=== PATIENT | female | born 1950 | race Caucasian/White ===

== ENCOUNTER 2017-08-11 08:38 | Inpatient (IN) | payer OTHER ==
[2017-08-08 11:33] VITALS: BMI 33.6
[2017-08-11] MEDS ORDERED: TRANEXAMIC ACID 1000 MG/10 ML VIAL IVPUSH ONE (09:17)
[2017-08-11] MEDS ORDERED: CEFAZOLIN 2 GM in DEXTROSE 5%-WATER - 50 ML IVPB ONE (09:17)
[2017-08-11] MEDS ORDERED: ROPIVICAINE 0.2%/MORPH PF/KETOROLAC - 51ML DISP.SYRINGE IA ONE ×2 (09:17→11:48)
[2017-08-11] MEDS: CELECOXIB 200 MG CAPSULE PO ONE ×2 (10:00→15:45)
[2017-08-11] MEDS: oxyCODONE HCL 10 MG SUSTAINED ACTING TABLET PO ONE ×2 (10:00→15:46)
[2017-08-11] MEDS: GABAPENTIN 300 MG CAPSULE (FP) PO ONE ×2 (10:00→15:46)
[2017-08-11] MEDS ORDERED: MIDAZOLAM HCL 2 MG/2 ML SINGLE DOSE VIAL ONE ×2 (10:02→12:27)
[2017-08-11] MEDS ORDERED: ROPIVACAINE HCL 0.5% 30ML VIAL ONE (10:03)
[2017-08-11] MEDS ORDERED: DEXAMETHASONE SOD PHOSPHATE/PF 10 MG/ML SDV ONE (10:03)
--- NOTE | 2017-08-11 11:22 | HP ---
Admitting History and Physical - Admission Chief Complaint: right knee OA History of Present Illness: 66yo female with right knee OA, failed conservative management, indicated for TKA History Source: Patient, Medical Record Limitations to Obtaining History: No Limitations - Past Medical History Cardiovascular: Yes: HTN, Hyperlipdemia - Smoking History Smoking history: Former smoker Have you smoked in the past 12 months: No Aproximately how many cigarettes per day: 2 If you are a former smoker, when did you quit?: 1966 - Alcohol/Substance Use Hx Alcohol Use: No Home Medications - Allergies Allergies/Adverse Reactions: Allergies Allergy/AdvReac Type Severity Reaction Status Date / Time No Known Allergies Allergy Verified 08/11/17 09:46 - Home Medications Home Medications: Ambulatory Orders Atorvastatin Ca [Lipitor] 20 mg PO DAILY 05/29/17 Bisoprolol Fumarate/Hctz [Bisoprolol-Hctz 10-6.25 mg Tab] 1 tab PO DAILY Meloxicam [Mobic (Nf) -] 15 mg PO DAILY 05/29/17 Multivitamins [Tab-A-Vit -] 1 tab PO DAILY 05/29/17 Ramipril 5 mg PO DAILY 05/29/17 Hydrocodone/Acetaminophen [Hydrocodon-Acetaminophen 5-300] 1 each PO Q4H PRN Physical Examination Vital Signs: Vital Signs Temperature 98.3 F 08/11/17 09:52 Pulse Rate 65 08/11/17 09:52 Respiratory Rate 16 08/11/17 09:52 Blood Pressure 152/77 08/11/17 09:52 O2 Sat by Pulse Oximetry (%) Constitutional: Yes: Well Nourished, No Distress, Calm Eyes: Yes: WNL, Conjunctiva Clear, EOM Intact HENT: Yes: WNL, Atraumatic, Normocephalic Neck: Yes: WNL, Supple Cardiovascular: Yes: WNL, Regular Rate and Rhythm Respiratory: Yes: WNL, Regular Gastrointestinal: Yes: WNL, Soft, Abdomen, Obese ...Rectal Exam: Yes: Deferred Musculoskeletal: Yes: Joint Stiffness, Joint Swelling Extremities: Yes: WNL Edema: No Peripheral Pulses WNL: Yes Integumentary: Yes: WNL Neurological: Yes: WNL, Alert, Oriented ...Motor Strength: WNL Psychiatric: Yes: WNL, Alert, Oriented Labs: reviewed in chart Imaging - Results X-ray: Image Reviewed Problem List - Problems (1) Osteoarthritis of right knee Code(s): M17.11 - UNILATERAL PRIMARY OSTEOARTHRITIS, RIGHT KNEE Qualifiers: Osteoarthritis type: primary Qualified Code(s): M17.11 - Unilateral primary osteoarthritis, right knee; M17.11 - Unilateral primary osteoarthritis, right knee Assessment/Plan 66yo female with right knee OA, failed conservative management, here for R TKA
[2017-08-11] MEDS ORDERED: TRANEXAMIC ACID 1000 MG/10 ML VIAL ONE ×2 (11:47→13:46)
[2017-08-11] MEDS ORDERED: VANCOMYCIN 1,000 MG VIAL (RESTRICTED TO ID ONLY) ONE (11:47)
[2017-08-11] MEDS ORDERED: ceFAZolin SODIUM 1 GM VIAL ONE ×2 (11:47→12:08)
[2017-08-11] MEDS ORDERED: BUPIVACAINE HCL/PF 0.5% (5MG/ML) 10 ML VIAL ONE (12:01)
[2017-08-11] MEDS ORDERED: DEXAMETHASONE SOD PHOSPHATE 4 MG/1 ML VIAL ONE (12:47)
[2017-08-11] MEDS ORDERED: ONDANSETRON 4 MG/2 ML VIAL ONE (12:47)
[2017-08-11] MEDS ORDERED: oxyCODONE HCL 5 MG TABLET PO PRN (13:31)
--- NOTE | 2017-08-11 15:39 | OP ---
Operative Note - Note: Operative Date: 08/11/17 Pre-Operative Diagnosis: right knee OA Operation: right TKA Post-Operative Diagnosis: Same as Pre-op Surgeon: Demian Palacio Harvest Crew Supervisor: Carolina Jang Anesthesia: Spinal Estimated Blood Loss (mls): 100
[2017-08-11] MEDS ORDERED: MAG HYDROX/AL HYDROX/SIMETH 30 ML UNIT-DOSE CUP PO PRN (15:40)
[2017-08-11] MEDS ORDERED: MAGNESIUM HYDROX 2400MG/30ML ORAL SUSPENSION 30 ML CUP PO PRN (15:40)
[2017-08-11] MEDS ORDERED: ONDANSETRON 4 MG/2 ML VIAL IVPB PRN (15:40)
[2017-08-11] MEDS ORDERED: LACTATED RINGERS SOLUTION 1,000 ML IV SCH (15:45)
--- NOTE | 2017-08-11 15:51 | SURG ---
Surgery Special Services Coordinator Note Special Services Coordinator: Carolina Jang PA-C Date of Service: 08/11/17 Diagnosis: right knee Osteoarthritis Procedure: Right Total knee arthroplasty I was present for the entirety of the operative procedure. For further detail, please refer to operative report. Visit type - Case Type Case Type: Scheduled Admission - Emergency Emergency Visit: No - New patient This patient is new to me today: Yes Date on this admission: 08/11/17
[2017-08-11] MEDS ORDERED: KETOROLAC TROMETHAMINE 30 MG/1 ML VIAL ONE (15:53)
[2017-08-11] MEDS ORDERED: ACETAMINOPHEN INJECTION 100 ML IVPB ONE (15:53)
[2017-08-11] MEDS ORDERED: traMADol HCL 50 MG TABLET ONE (15:53)
[2017-08-11] MEDS: ACETAMINOPHEN 1000 MG/100 ML VIAL (NON FORMULARY) IVPB ONE ×2 (15:55→16:00)
[2017-08-11] MEDS: traMADol HCL 50 MG TABLET PO SCH ×3 (15:56→20:54)
[2017-08-11] MEDS: KETOROLAC TROMETHAMINE 30 MG/1 ML VIAL IVPUSH SCH ×3 (15:56→20:57)
[2017-08-11] MEDS: ACETAMINOPHEN 325 MG TABLET (FP) PO SCH ×2 (17:16→20:54)
[2017-08-11] MEDS: CEFAZOLIN 1 GM/D5W 50 ML IVPB SCH (20:04)
[2017-08-11] MEDS ORDERED: GABAPENTIN 300 MG CAPSULE (FP) PO SCH (22:00)
[2017-08-11] MEDS: oxyCODONE HCL 10 MG SUSTAINED ACTING TABLET PO SCH (22:17)
[2017-08-11] MEDS: SENNOSIDES/DOCUSATE COMBO (SENNA PLUS) TABLET (UD) PO SCH (22:18)
[2017-08-11] MEDS: GABAPENTIN 300 MG CAPSULE (FP) PO SCH (22:19)
[2017-08-11] MEDS: CELECOXIB 200 MG CAPSULE PO SCH (22:19)
[2017-08-11] MEDS: ASCORBIC ACID 500 MG TABLET (FP) PO SCH (22:19)
[2017-08-11] MEDS ORDERED: DEXAMETHASONE SOD PHOSPHATE 10 MG/1 ML VIAL ONE (23:58)
[2017-08-12] MEDS ORDERED: DEXAMETHASONE SOD PHOSPHATE 10 MG/1 ML VIAL IVPB ONE (01:00)
[2017-08-12] MEDS: traMADol HCL 50 MG TABLET PO SCH ×4 (02:55→21:12)
[2017-08-12] MEDS: ACETAMINOPHEN 325 MG TABLET (FP) PO SCH ×4 (02:55→21:11)
[2017-08-12] MEDS: KETOROLAC TROMETHAMINE 30 MG/1 ML VIAL IVPUSH SCH ×2 (02:56→09:17)
[2017-08-12] MEDS: CEFAZOLIN 1 GM/D5W 50 ML IVPB SCH (03:55)
[2017-08-12 07:58] LABS: MCH 30.8 pg (25.7-33.7); MCHC 34.2 g/dl (32.0-36.0); MEAN CELL VOLUME 90.2 fl (80-96); PLATELET COUNT 281 K/MM3 (134-434); RDW 12.1 % (11.6-15.6); WHITE BLOOD COUNT 10.7 K/mm3 (4.0-10.8)
[2017-08-12 08:21] LABS: ANION GAP 11 (8-16); CALCIUM 9.2 mg/dl (8.4-10.2); CO2 22 mmol/L (22-28); CREATININE 0.9 mg/dl (0.6-1.3); GLUCOSE,RANDOM 192 mg/dl (74-106)
--- NOTE | 2017-08-12 09:02 | PN ---
Progress Note (short form) - Note Progress Note: 66F POD1 s/p R TKR under spinal anesthetic with adductor canal and selective tibial blocks doing well. Pt states that she has no pain, reports no anesthetic complications. Sensory and motor function intact in bilateral lower extremities.
[2017-08-12] MEDS: ASPIRIN 325 MG TABLET PO SCH (09:16)
[2017-08-12] MEDS: oxyCODONE HCL 10 MG SUSTAINED ACTING TABLET PO SCH (09:21)
[2017-08-12] MEDS: MULTIVITAMINS (DAILY MVI) TABLET (FP) PO SCH (09:21)
[2017-08-12] MEDS: ASCORBIC ACID 500 MG TABLET (FP) PO SCH ×2 (09:21→21:12)
[2017-08-12] MEDS: CELECOXIB 200 MG CAPSULE PO SCH ×2 (09:21→21:12)
[2017-08-12] MEDS: RAMIPRIL 5 MG CAPSULE (FP) PO SCH (09:21)
[2017-08-12] MEDS: SENNOSIDES/DOCUSATE COMBO (SENNA PLUS) TABLET (UD) PO SCH ×2 (09:21→21:12)
[2017-08-12] MEDS: ATORVASTATIN CA 20 MG TABLET (FP) PO SCH (09:21)
[2017-08-12] MEDS: GABAPENTIN 300 MG CAPSULE (FP) PO SCH ×2 (09:21→21:12)
[2017-08-12] MEDS: PANTOPRAZOLE 40 MG TABLET (FP) PO SCH (09:21)
[2017-08-12] MEDS ORDERED: PATIENT'S OWN MEDICATION (NON-FORMULARY) (Bisoprolol Fumarate/Hctz [Bisoprolol-Hctz 10-6.2 PO SCH (10:00)
--- NOTE | 2017-08-12 13:46 | SPEC ---
DATE OF OPERATION: 08/11/2017 PREOPERATIVE DIAGNOSIS: Right knee osteoarthritis. POSTOPERATIVE DIAGNOSIS: Right knee osteoarthritis. PROCEDURE: Right total knee replacement. SURGEON: Dariusz Trejo MD FISHING GAME WARDEN: MELISSA Florian. ANESTHESIA: Spinal plus sedation. ESTIMATED BLOOD LOSS: 100 mL. COMPLICATIONS: None. DISPOSITION: The patient was transferred to the PACU in stable condition. SPECIMENS SENT: Resected bone was sent for pathological analysis. IMPLANTS USED: Latanya Triathlon size 4 femoral component, size 3 tibial components, 32-mm patellar component, and 11-mm posterior stabilized polyethylene component. INDICATIONS: This is a 66-year-old female who presented to the office complaining of severe right knee pain. She was seen and examined by Dr. Trejo and diagnosed with severe right knee osteoarthritis with valgus alignment. She was initially treated nonoperatively with medications, injections, and physical therapy, but continued to have severe pain. She was therefore indicated for a right total knee replacement. The risks, benefits, and alternatives to the procedure were explained to the patient in great detail, and she elected to proceed with the surgery. DESCRIPTION OF PROCEDURE: On the day of surgery, the patient was taken to the operating room and placed supine on the OR table. Spinal anesthesia was administered by the anesthesiologist. The patient was then positioned supine on the table and all bony prominences were padded. A nonsterile tourniquet was placed on the proximal thigh. The knee was then prepped and draped in the usual sterile fashion and intravenous antibiotics were given for infection prophylaxis. A surgical time-out was then performed with the team, and the patients identity, procedure, side, availability of implants, and the administration of antibiotics was confirmed. The leg was then elevated and exsanguinated, and the tourniquet was inflated. With the knee flexed, a midline incision was made and carried down through the subcutaneous fat to the underlying retinaculum. A medial parapatellar arthrotomy was performed. This was followed by a subperiosteal dissection of the tissue off the proximal, medial tibia. A portion of fat pad was removed from under the patellar tendon, and a small portion of fat was excised off the distal supracondylar femur. The knee was then flexed further and the anterior horn of the lateral meniscus was released from the midline. Next, the anterior and posterior cruciate ligaments were transected. Osteophytes were removed from both the femur and tibia. Grade 4 changes were noted diffusely throughout the knee. Hohmann retractors were then placed around the distal femur. The starting drill was used to enter the intramedullary canal. The starting point had been chosen by checking the radiographs and anatomy. Proper alignment and intramedullary placement was then confirmed by placing the long narrow huan into the femur. Next, the distal femoral cutting guide was adjusted to 6 degrees of valgus and pinned to the femur. The bone resection was assessed using an isma-wing. An approximately 10mm distal cut was made and the cut pieces measured. Once this was complete, the sizing guide was used to determine which size femoral component should be used. Next, the appropriately sized 4-in-1 cutting block was then placed at the correct amount of external rotation and the isma wing was used to assure that there would be no notching of the anterior cortex of the femur. Once this was done, Hohmann retractors were used to protect the medial and lateral collateral ligaments, and all appropriate bone cuts were made. Attention was then turned to the tibia. Hohmann retractors were used to translate the tibia anteriorly and protect the collateral ligaments. The medial and lateral menisci were removed. The extramedullary tibial alignment guide was then placed and adjusted for rotation, varus/valgus, and slope. The height of the cutting block was adjusted to the level of the desired bone resection and then pinned in place. The proximal tibia was then cut with a saw and the bone was removed and measured. Once this was completed, trial components were placed and the knee was taken through a full range of motion. Soft tissue balance was assessed in both flexion and extension and found to be appropriate. The knee was stable throughout the full range of motion. The knee was then put into extension and the patella everted. The synovium around the patella was circumscribed with electrocautery. A caliper was used to measure the patellar thickness and a saw was then used to resect the patella at the chondro-osseous junction. The cut surface was then sized and drilled for the appropriate patellar button, with care taken to medialize it. A trial patella was then placed and the knee was again taken through a full range of motion. The knee was found to have both good balance and good patellar tracking. All of the components were removed except the tibial base plate. The appropriate instrumentation was used to drill and punch the proximal tibia for the keel of the final component. All bony surfaces were then cleaned with pulsatile lavage and dried. Bone cement was then prepared on the back table, and final components were cemented in place in the usual fashion. Extruded cement was removed. The polyethylene trial was placed, the knee was put into extension, and axial pressure was applied for compression while the cement hardened. The patellar button was similarly cemented into place. Once the cement had hardened, the knee was taken through a full range of motion to assess stability, balance, and patellar tracking. This was found to be optimal and the trial polyethylene was exchanged for the appropriately sized real implant. The wound was then thoroughly irrigated with normal saline. No. 1 Polysorb and 0 VLoc 180 barbed sutures were used to close the arthrotomy. No. 1 Polysorb and 2-0 Polysorb sutures were used in the subcutaneous tissues. The skin was closed using both 3-0 VLoc 90 suture in a running subcuticular fashion and SwiftSet skin adhesive. Once this was completed a sterile Aquacel dressing and compressive Dariel-wrap was applied. The tourniquet was then deflated and the patient was awakened and taken to the PACU in stable condition. ADDENDUM: After final implants were placed, a 3-minute dilute Betadine lavage was performed according to the [facility] protocol. Following this, wound was thoroughly irrigated with normal saline via pulse lavage, and wound closure was begun. DARIUSZ TREJO M.D. [id number]
[2017-08-12] MEDS: oxyCODONE HCL 5 MG TABLET PO PRN ×3 (14:12→23:06)
--- NOTE | 2017-08-12 22:13 | PN ---
Progress Note (short form) - Note Progress Note: Pt seen and examined. Doing very well. Walked several hundred feet with PT today. Pain well controlled. AVSS Selected Entries 08/12/17 14:18 Temperature 98.1 F Pulse Rate 77 Respiratory 18 Rate Blood Pressure 141/59 O2 Sat by Pulse 98 Oximetry (%) Laboratory Tests 08/12/17 08/12/17 07:45 07:45 WBC 10.7 Hgb 12.4 Hct 36.2 Plt Count 281 Sodium 137 Potassium 4.2 Chloride 104 Carbon Dioxide 22 Anion Gap 11 BUN 21 H Creatinine 0.9 Random Glucose 192 H Calcium 9.2 Gen: NAD RLE: c/d/i, NVID A/P 66yo female POD#1 s/p R TKA 1. PT/OOB - WBAT RLE 2. D/C in AM after PT; f/u in office in 10-14 days. Problem List - Problems (1) Osteoarthritis of right knee Code(s): M17.11 - UNILATERAL PRIMARY OSTEOARTHRITIS, RIGHT KNEE Qualifiers: Osteoarthritis type: primary Qualified Code(s): M17.11 - Unilateral primary osteoarthritis, right knee; M17.11 - Unilateral primary osteoarthritis, right knee
[2017-08-13] MEDS: ACETAMINOPHEN 325 MG TABLET (FP) PO SCH ×2 (03:32→09:05)
[2017-08-13] MEDS: traMADol HCL 50 MG TABLET PO SCH ×2 (03:32→09:06)
[2017-08-13 06:33] VITALS: BP 141/50; PULSE 64; TEMP 99
[2017-08-13 08:48] LABS: MCH 30.6 pg (25.7-33.7); MCHC 33.9 g/dl (32.0-36.0); MEAN CELL VOLUME 90.1 fl (80-96); MEAN PLT VOLUME 8.8 fl (7.5-11.1); PLATELET COUNT 272 K/MM3 (134-434); RDW 12.4 % (11.6-15.6); WHITE BLOOD COUNT 7.5 K/mm3 (4.0-10.8)
[2017-08-13 08:56] LABS: ANION GAP 10 (8-16); CALCIUM 8.6 mg/dl (8.4-10.2); CO2 25 mmol/L (22-28); CREATININE 0.9 mg/dl (0.6-1.3); GLUCOSE,RANDOM 118 mg/dl (74-106)
[2017-08-13] MEDS: RAMIPRIL 5 MG CAPSULE (FP) PO SCH (09:05)
[2017-08-13] MEDS: CELECOXIB 200 MG CAPSULE PO SCH (09:05)
[2017-08-13] MEDS: GABAPENTIN 300 MG CAPSULE (FP) PO SCH (09:05)
[2017-08-13] MEDS: ASPIRIN 325 MG TABLET PO SCH (09:05)
[2017-08-13] MEDS: PANTOPRAZOLE 40 MG TABLET (FP) PO SCH (09:05)
[2017-08-13] MEDS: ASCORBIC ACID 500 MG TABLET (FP) PO SCH (09:05)
[2017-08-13] MEDS: MULTIVITAMINS (DAILY MVI) TABLET (FP) PO SCH (09:05)
[2017-08-13] MEDS: ATORVASTATIN CA 20 MG TABLET (FP) PO SCH (09:05)
[2017-08-13] MEDS: SENNOSIDES/DOCUSATE COMBO (SENNA PLUS) TABLET (UD) PO SCH (09:06)
[2017-08-13] MEDS: oxyCODONE HCL 5 MG TABLET PO PRN (11:28)
--- NOTE | 2017-08-14 10:20 | PATH ---
Surgical Pathology Report Patient Name: JEFFRY SEGAL Med. Rec. #: [id number] /Age/Gender: 1950 (Age: 66) / F Account: [id number] Location: [facility] Taken: 08/12/2017 Received: 08/12/2017 Reported: 08/14/2017 Physicians: Demian Palacio M.D. Specimen(s) Received BONE RIGHT KNEE Clinical History Right knee osteoarthritis Final Diagnosis BONE AND SOFT TISSUE, RIGHT KNEE, REPLACEMENT: DEGENERATIVE JOINT DISEASE. Electronically Signed Yang Kendall M.D. Gross Description Received in formalin labeled "bone right knee," is an 11.5 x 10.0 x 1.8 cm aggregate of multiple irregular portions of bone and soft tissue. The tibial plateau measures 7.5 x 5.2 x 1.5 cm. There is a 2.1 cm in greatest dimension area of eburnation present. The remaining articular surfaces are tobar-yellow and focally granular. The underlying trabecular bone is yellow and hard. Economic Adviser sections are submitted in one cassette, following decalcification. /08/12/2017 [facility]08/12/2017
== END 2017-08-13 11:35 | disposition home health service (06) | DRG 470 ==
LOC: FM/S 08:38
PROVIDERS: ADMIT Student in an Organized Health Care Education/Training Program; ATTEND Student in an Organized Health Care Education/Training Program
PROC: 0SRC069 Replacement of Right Knee Joint with Oxidized Zirconium on Polyethylene Synthetic Substitute, Cemented, Open Approach (ICD-10-PCS; principal; 2017-08-11 13:00)
DX: M17.11 Unilateral primary osteoarthritis, right knee (principal); I10 Essential (primary) hypertension; E78.5 Hyperlipidemia, unspecified; E66.9 Obesity, unspecified; Z68.33 Body mass index [BMI] 33.0-33.9, adult
CPT/HCPCS: 36415; 73560-TC-RT; 80048; 85027; 88304-TC; 88311-TC; 94010; 94760; 97116-GP; 97162-GP